=== PATIENT | female | born 1985 | race Caucasian/White ===

== ENCOUNTER 2019-05-29 18:34 | Inpatient (IN) ==
[2019-05-29] MEDS ORDERED: NS 1,000 ML IV ONE ×2 (18:41→19:39)
[2019-05-29] MEDS ORDERED: ZOFRAN IV ONE (18:41)
[2019-05-29] MEDS ORDERED: MORPHINE IV ONE (18:42)
[2019-05-29 19:19] LABS: BASO# 0.02 X1000 (0.0-0.2); BASO% 0.2 % (0.0-0.8); EOS# 0.08 X1000 (0.0-0.7); HEMATOCRIT 41.2 % (37.0-47.0); HEMOGLOBIN 14.5 g/dL (12.0-16.0); LYMPH# 2.01 X1000 (1.2-3.4); LYMPH% 24.8 % (20.5-51.1); MCHC 35.2 g/dL (33-37); MCV 88.2 FL (81-99); MONO# 0.97 X1000 (0.11-0.59); MONO% 11.9 % (1.7-9.3); MPV 9.3 FL (7.4-10.4); NEUT# 5.04 X1000 (1.4-6.5); NEUT% 62.1 % (42.2-75.2); PLT 257 X1000 (130-400); RBC 4.67 XMIL (4.2-5.4); RDW 12.7 % (11.5-14.5); WBC 8.12 X1000 (4.8-10.8)
[2019-05-29] MEDS ORDERED: NS 1,000 ML ONE (19:33)
[2019-05-29 19:37] LABS: AGAP 13; ALB/GLOB RATIO 1.5; ALBUMIN 4.1 g/dL (3.5-5.0); ALKALINE PHOSPHATASE 55 U/L (32-104); AMYLASE 27 U/L (20-200); BUN 20 mg/dL (8-22); CALCIUM 9.2 mg/dL (8.8-10.2); CHLORIDE 98 mmol/L (98-107); COSMO 279; ESTIMATED GFR > 60; GLUCOSE 105 mg/dL (70-104); GOT 19 U/L (10-30); GPT 19 U/L (10-36); LIPASE 16 U/L (13-60); POTASSIUM 3.5 mmol/L (3.5-5.1); SODIUM 138 mmol/L (136-145); TCO2 27 mmol/L (25-35); TOTAL BILIRUBIN 0.93 mg/dL (0.20-1.00); TOTAL PROTEIN 6.8 g/dL (6.3-8.3)
[2019-05-29] MEDS ORDERED: SODIUM CHLORIDE 0.9% INJ ONE (20:16)
[2019-05-29] MEDS ORDERED: PHENERGAN IV ONE (20:16)
[2019-05-29] MEDS ORDERED: LEVOPHED 8 MG in D5 1/2 NS 250 ML IV SCH (20:30)
[2019-05-29 20:41] LABS: URINE SOURCE CLEAN CATCH
[2019-05-29 20:44] LABS: BILIRUBIN URINE NEGATIVE (NEGATIVE); BLOOD URINE NEGATIVE (NEGATIVE); COLOR YELLOW; GLUCOSE URINE NEGATIVE (NEGATIVE); KETONE URINE 40 mg/dL (NEGATIVE); LEUKOCYTES URINE NEGATIVE (NEGATIVE); NITRITE URINE NEGATIVE (NEGATIVE); PROTEIN URINE TRACE mg/dL (NEGATIVE); SP GRAVITY URINE 1.018; TURBIDITY URINE HAZY (CLEAR); UROBILINOGEN URINE NORMAL (NORMAL)
[2019-05-29 20:49] LABS: UR EPITHELIAL CELLS <10 /HPF (<10); URINE BACTERIA 1+ /HPF; URINE RBC <10 /HPF (<10); URINE WBC <10 /HPF (<10)
--- NOTE | 2019-05-29 20:55 | Diag Imaging Result Doc PS360 ---
CT ABD/PELVIS W/IV CONT ONLY - 05/29/2019 INDICATION: abd pain COMPARISON: None FINDINGS: The lung bases are clear and the heart size is normal. There is a stone in the right kidney measuring 7 x 5 mm. No hydronephrosis or hydroureter. Otherwise all abdominal organs are normal. No bowel obstruction or inflammation. Uterus is absent. Urinary bladder and rectum are normal. Bones are intact. IMPRESSION: Nonobstructing right renal stone. This exam was performed using automated exposure control, adjustment of mA or kV according to patient size, and/or use of iterative reconstruction technique Electronically signed by Jai Ramirez 05/29/2019 8:53 PM
[2019-05-29 20:58] LABS: URINE YEAST NONE SEEN
[2019-05-29] MEDS ORDERED: LR 1,000 ML IV ONE (22:35)
--- NOTE | 2019-05-30 | HISTORY AND PHYSICAL ---
PRIMARY CARE PHYSICIAN: Dr. Bay, [place], [place]. REASON FOR ADMISSION: A 2-week history of persistent nausea, vomiting, and diarrhea. HISTORY OF PRESENT ILLNESS: Ms. Ruth Vasquez is a 34-year-old, woman, with past medical history of migraines, hypertension, anxiety. She comes in today complaining of a 2-week history of persistent nausea, vomiting, and diarrhea. Neither her vomitus or diarrhea is bloody or has altered blood. No fever. No chills. No contacts. No travel. No sick pets. No change in her medications. She says she came in today because she is profoundly weak to the point that when she tries to sit up or stand up, she feels severely lightheaded to the point that she may want to pass out. She says that the diarrhea episodes do not occur at night and she has since developed about a 1-week history of periumbilical, constant, nagging pain, which has started radiating to the right lower quadrant. The pain is worse when she eats. No specific relieving factors. She also reports that for the last 2 days, she has not voided. She has no extremity swelling or abdominal swelling. She says she has not had anything to eat for the last 3 to 4 days. Cannot keep her food down. REVIEW OF SYSTEMS: A 12-system review, positive findings per HPI. No history of recent antibiotic use. ALLERGIES: Sulfa and Topamax. HOME MEDICATIONS: Patient is on Elavil 50 mg daily, Phenergan 25 mg q.6 p.r.n., Trintellix 20 mg daily, Protonix 40 mg daily, Percocet 10 q.6 p.r.n., Hyzaar 50/12.5 mg daily, Klonopin 0.5 mg p.r.n., Inderal 20 mg daily, Cymbalta 30 mg daily, Cardizem 240 mg daily, Lunesta 2 mg at bedtime. SURGICAL HISTORY: She has had a hysterectomy and a section. FAMILY HISTORY: Significant for thyroid disorder. SOCIAL HISTORY: Smokes half a pack a day. Lives with her spouse. No alcohol or illicit drug use. LABORATORY AND DIAGNOSTIC DATA: White count 8000, hemoglobin and hematocrit 14 and 41, platelets 257,000, normal differential. BUN is 20, creatinine 1.0, glucose 105. Lipase is normal. Urine just shows positive ketones, 1+ bacteria. CT of abdomen and pelvis was essentially normal. PHYSICAL EXAMINATION: VITAL SIGNS: Blood pressure 77/56, on 2 L of normal saline, it has gone up to 91/42. Heart rate 78, respirations 50, temperature is 98.8 degrees, 100% on room air. GENERAL: Young, woman, who is in mild distress from nausea and pain. She is alert and oriented to person, place, and time. Normal mood and affect. HEENT: Head is normocephalic, atraumatic. Eyes, PERRLA, EOMI. Sclerae anicteric, not pale. ENT and oropharyngeal exam is only notable for moderate xerostomia. No central cyanosis. NECK: Supple. No JVD or carotid bruit. No thyromegaly. CHEST: Clear to auscultation. Good air entry in all lung borrego. CARDIOVASCULAR: First and second heart sounds heard. No gallops, murmurs, rubs. Rhythm is regular. ABDOMEN: Full, soft, with tenderness confined to the umbilical area. Bowel sounds are hyperactive surprisingly. Rectal exam is deferred. The patient has questionable McBurney point tenderness. EXTREMITIES: Patient has no edema, clubbing, or peripheral cyanosis. Significant decreased pulse volumes in all extremities, but they are symmetrical and regular. NEUROLOGICAL: Grossly normal. No focal deficits. SKIN: Intact. No breakdown, lesion, erythema. There is an area near her left cubital area medially that has thickened, cord-like structures that are mildly tender. MUSCULOSKELETAL: Grossly normal. ASSESSMENT: 1. Gastroenteritis. Etiology yet to be determined. 2. Severe dehydration from gastroenteritis. 3. Left upper extremity thrombophlebitis. 4. Migraines. 5. History of hypertension. 6. Hypotension secondary to #1. PLAN: The patient will be aggressively resuscitated with intravenous crystalloids. If blood pressure does not improve and her MAP is significantly low, we may need to supplement her blood pressure control with pressors. I personally do not think that will be necessary as long as she is appropriately hydrated. Will treat patient symptomatically. Ordered a right upper quadrant sonogram to rule out the possibility of cholecystitis, based on the fact that her symptoms are aggravated by meals. Failing any valuable information, an EGD and colonoscopy may be entertained, and will consult GI to see. We will withhold antihypertensives during this phase unless her systolic blood pressure is greater than 150. All unnecessary medications will be withheld. cc: MD Hector Cruz
[2019-05-30] MEDS ORDERED: PERCOCET-10 PO PRN (00:52)
[2019-05-30] MEDS ORDERED: SODIUM CHLORIDE 0.9% INJ PRN (00:52)
[2019-05-30] MEDS ORDERED: TYLENOL PO PRN (00:52)
[2019-05-30] MEDS ORDERED: ZOFRAN IV PRN (00:52)
--- NOTE | 2019-05-30 01:31 | EKG Report ---
Test Performed on : 05/29/2019 6:43:23 PM Test Reason : CP Blood Pressure : / mmHG Vent. Rate : 091 BPM Atrial Rate : 091 BPM P-R Int : 158 ms QRS Dur : 108 ms QT Int : 394 ms P-R-T Axes : 054 057 041 degrees QTc Int : 484 ms Sinus rhythm. with frequent premature ventricular complexes. Prolonged QT Abnormal ECG When compared with ECG of 24-AUG-2013 17:31, premature ventricular complexes. are now present QT has lengthened Unconfirmed Result
[2019-05-30] MEDS: POTASSIUM CHLORIDE 10 MEQ in LR 1,000 ML IV SCH ×3 (01:45→17:22)
[2019-05-30] MEDS: LOVENOX SUBQ SCH (01:45)
[2019-05-30] MEDS: PROTONIX IV SCH ×2 (01:45→15:15)
[2019-05-30 06:41] LABS: EOS% 2.6 % (0.0-10.0); HEMOGLOBIN 13.1 g/dL (12.0-16.0); LYMPH% 36.6 % (20.5-51.1); MCH 31.1 PG (27-31); MCHC 34.5 g/dL (33-37); MCV 90.3 FL (81-99); MONO% 9.9 % (1.7-9.3); MPV 9.1 FL (7.4-10.4); NEUT% 50.5 % (42.2-75.2); PLT 184 X1000 (130-400); RBC 4.21 XMIL (4.2-5.4); RDW 12.8 % (11.5-14.5); WBC 4.54 X1000 (4.8-10.8)
[2019-05-30 06:42] LABS: BASO# 0.02 X1000 (0.0-0.2); BASO% 0.4 % (0.0-0.8); EOS# 0.12 X1000 (0.0-0.7); LYMPH# 1.66 X1000 (1.2-3.4); MONO# 0.45 X1000 (0.11-0.59); NEUT# 2.29 X1000 (1.4-6.5)
[2019-05-30] MEDS: PHENERGAN IV PRN ×2 (06:46→18:42)
[2019-05-30] MEDS: MORPHINE IV PRN ×2 (06:59→18:35)
[2019-05-30 07:47] LABS: AGAP 6; BUN 14 mg/dL (8-22); CALCIUM 8.1 mg/dL (8.8-10.2); CHLORIDE 104 mmol/L (98-107); COSMO 277; CREATININE 0.6 mg/dL (0.5-0.9); ESTIMATED GFR > 60; GLUCOSE 75 mg/dL (70-104); MAGNESIUM 1.8 mg/dL (1.5-2.7); POTASSIUM 3.7 mmol/L (3.5-5.1); SODIUM 139 mmol/L (136-145); TCO2 29 mmol/L (25-35)
--- NOTE | 2019-05-30 07:53 | Diag Imaging Result Doc PS360 ---
EXAM: US ABDOMEN-COMPLETE 05/30/2019 HISTORY: RUQ pain diarreha TECHNIQUE: Abdominal ultrasound COMMENT: The visualized portions of the aorta and inferior vena cava are within normal limits. The head of the pancreas is normal in appearance most of the body and tail are obscured. The liver is unremarkable. There is antegrade flow in the portal vein. There is no evidence of biliary dilatation the common bile duct measuring less than 3 mm. The gallbladder is clear and nontender. The kidneys are without evidence of hydronephrosis or mass. The spleen is slightly enlarged measuring over 13 cm in two planes. IMPRESSION: Splenomegaly. Otherwise no evidence of acute disease. Electronically signed by Quintin Crowder 05/30/2019 7:51 AM
[2019-05-30] MEDS ORDERED: INDERAL PO SCH (09:00)
[2019-05-30] MEDS: KLONOPIN PO PRN ×2 (09:52→21:46)
[2019-05-30] MEDS ORDERED: G.I. COCKTAIL PO ONE (09:59)
[2019-05-30] MEDS ORDERED: DIPRIVAN 1% ONE (10:53)
[2019-05-30] MEDS ORDERED: XYLOCAINE-MPF 2% ONE (10:55)
--- NOTE | 2019-05-30 11:41 | ENDOSCOPY OPERATIVE NOTE ---
[facility] ENDOSCOPY OPERATIVE NOTE , PATIENT: Ruth Vasquez ADMISSION DATE: 05/30/2019 [facility]#: [id number] [facility] 1985 [id number] EGD PROCEDURE REPORT PROCEDURE DATE: 05/30/2019 SURGEON: Juaquin Johnson MD STATUS: inpatient EXTRUDER OPERATOR: PREOPERATIVE DIAGNOSIS: The patient is a 34 yr old female here for an EGD due to nausea, vomiting, p eriumbilical abdominal pain, and abdominal pain in the upper right quadrant. PROCEDURE PERFORMED: EGD w/ biopsy MEDICATIONS: Per Anesthesia TOPICAL ANESTHETIC: none CONSENT: The patient understands the risks and benefits of the procedure and understands that these r isks include, but are not limited to: sedation, allergic reaction, infection, perforation and/or bleeding. Alternative means of evaluation and treatment include, among others: physical exam, x-rays, and/or surgical intervention. The patient elects to proceed with this endoscopic procedure. HISORY AND PHYSICAL: 05/30/2019 function. Hand hygiene and appropriate measures for infection prevention was taken. After the risks, benefits and alternatives of the procedure were thoroughly explained, Informed consent was verified, confirmed and timeout was successfully executed by the treatment team. The patient was anesthetized with topical anesthesia and the TH13-w02 ([id number]) endoscope was introduced through the mouth and advanced to the second portion of the duoden um. Retroflexion was performed in the stomach and revealed no abnormalities. The gastroscope was then slowly withdraw n and removed. ESOPHAGUS: The mucosa of the esophagus appeared normal. The z-line was noted at 35cm from the incis ors. The z-line appeared normal. STOMACH: Moderate gastritis (inflammation) was found in the gastric antrum. H. pylori biopsies were taken. An erosion was found in the gastric antrum. DUODENUM: The duodenum was normal. SPECIMENS REMOVED: Yes ADVERSE EVENTS: There were no complications. POSTOPERATIVE DIAGNOSIS: 1. The mucosa of the esophagus appeared normal 2. The z-line was noted at 35cm from the incisors 3. Gastritis (inflammation) was found in the gastric antrum 4. Erosion was found in the gastric antrum 5. The duodenum was normal RECOMMENDATIONS: 1. Await biopsy results 2. Increase protonix to 40mg PO BID and continue for 8-12 weeks Stop Zantac Avoid NSAIDs/aspirin Clear liquid diet, advance as tolerated If no improvement, then consider HIDA scan REPEAT EXAM: Juaquin Johnson MD eSigned: Juaquin Johnson MD 05/30/2019 11:41 AM cc: PATIENT NAME: Ruth Vasquez MR#: [id number]
[2019-05-30] MEDS: SODIUM CHLORIDE 0.9% INJ SCH ×2 (15:15→18:42)
[2019-05-30] MEDS ORDERED: CYMBALTA PO SCH (15:15)
[2019-05-30] MEDS ORDERED: TRINTELLIX PO SCH (15:15)
[2019-05-30] MEDS: D5 1/2 NS 1,000 ML IV SCH (15:29)
--- NOTE | 2019-05-30 19:09 | GASTROENTEROLOGY CONSULTATION ---
DATE: 05/30/2019 REASON FOR CONSULTATION: Intractable nausea, vomiting, abdominal pain, and hypotension. HISTORY OF PRESENT ILLNESS: Ms. Ruth Vasquez is a 34-year-old woman with history of hypertension, anxiety, depression, migraines, obesity, GERD, chronic back pain on Percocet and ibuprofen 800 mg who presents with 2 weeks of periumbilical pain radiating to the right upper quadrant and associated nausea and vomiting. The patient reports nausea with p.o. intake, particularly solids. She is able to tolerate liquids without difficulty. Her pain she described as throbbing, burning, and severe. She denies any diarrhea. She says at baseline. She has intermittent loose stools, but has not been able to have a bowel movement since recently. No hematemesis, rectal bleeding, melena. She has lost about 20 pounds over this 2 week period. She denies any sick contacts, new medications or changes in her diet are. She presented yesterday after developing generalized weakness, lightheadedness and dizziness. REVIEW OF SYSTEMS: As per HPI, otherwise 12 point review of systems negative. PAST MEDICAL HISTORY: As per HPI. PAST SURGICAL HISTORY: Hysterectomy and . MEDICATIONS: Elavil, Phenergan, Trintellix, Protonix, Percocet, Hyzaar, Klonopin, Inderal, Cymbalta, Cardizem, Lunesta, ibuprofen. ALLERGIES: Sulfa and Topamax. FAMILY HISTORY: No family history of GI malignancies except for her grandmother who had liver cancer in the setting of cirrhosis, BURKS cirrhosis. SOCIAL HISTORY: She smokes half a pack per day. Lives with her spouse. Rare alcohol. No drug use. PHYSICAL EXAMINATION: Vital Signs: Temperature is 97.9 degrees, heart rate of 84, respiratory rate 18, blood pressure 116/84 from 77/56 yesterday, O2 saturation is 96% on room air. General: The patient is awake, alert, oriented, no acute distress. HEENT: Sclerae anicteric. Moist mucous membranes. Extraocular movement intact. Neck: Supple. No JVD or lymphadenopathy. Cardiac: Regular rate and rhythm. No murmurs, rubs, or gallops. Lungs: Clear to auscultation bilaterally. No wheezing. Abdomen: Obese, soft, minimal tenderness in periumbilical area. No rebound or guarding. Bowel sounds are present. Extremities: No clubbing, cyanosis, or edema. Neurologic: Nonfocal. LABORATORY DATA: White count of 4.5, hemoglobin of 13.1, platelets of 184,000. CMP is within normal limits. Lipase is 16. TSH is within normal limits. UA showed trace protein and ketones. IMAGING: CT of the abdomen and pelvis with IV contrast shows a nonobstructing right renal stone measuring 7 x 5 mm. Abdominal ultrasound shows mild splenomegaly measuring 13 cm. Otherwise, no evidence of acute disease. No gallstones or hepatobiliary process seen. ASSESSMENT AND PLAN: Ms. Ruth Barth is a 34-year-old woman who presented with hypotension in the setting of 2 weeks of intractable nausea, vomiting, and periumbilical abdominal pain radiating to the right upper quadrant. She does take ranitidine and Protonix at home for GERD. She is on high-dose NSAIDs for chronic back pain. I suspect that she probably has peptic ulcer disease as a cause of her symptoms. Other possibilities include biliary dyskinesia. We will make her NPO. She is on IV fluids, Protonix IV b.i.d., antiemetics, and Elavil. We will plan on diagnostic EGD today. Other findings include splenomegaly. She has a family history of BURKS cirrhosis. She is overweight with obesity. Suspect she may have early signs of fatty liver. However, her ultrasound was negative for this. Her LFTs were unremarkable. Thank you for this consult. We will follow with you. Please call with any questions or concerns.
[2019-05-30] MEDS: CYMBALTA PO SCH (21:47)
[2019-05-30] MEDS: ELAVIL PO SCH (21:47)
[2019-05-30] MEDS: TRINTELLIX PO SCH (21:52)
--- NOTE | 2019-05-31 00:18 | Extremity Venous Study ---
PROCEDURE NAME: Venous U/S Left Arm - 05/30/2019 REFERRING PHYSICIAN: Deyvi Martinez MD. INTERPRETING PHYSICIAN: Alex Albrecht MD. HOT PACKER: Ty. INDICATIONS: The patient has edema and pain in the left arm, a knot in the antecubital area a couple days after having blood drawn there. FINDINGS: The left upper extremity is imaged. The internal jugular, subclavian, axillary, brachial, and basilic veins are imaged. The knot is imaged, and it is the basilic vein near the antecubital fossa. All veins are compressible except the basilic vein in the antecubital fossa, which is clotted. INTERPRETATION: Superficial venous thrombosis involving the distal left basilic vein at the antecubital fossa. All other veins are compressible. There is no evidence of deep venous thrombosis in the left upper extremity. cc: MD Deyvi Torres MD
[2019-05-31] MEDS: LOVENOX SUBQ SCH (02:00)
[2019-05-31] MEDS: MORPHINE IV PRN (04:48)
[2019-05-31] MEDS: D5 1/2 NS 1,000 ML IV SCH ×2 (04:53→16:27)
[2019-05-31] MEDS: PROTONIX IV SCH ×2 (05:15→16:28)
[2019-05-31 07:55] LABS: AGAP 7; BUN 4 mg/dL (8-22); CALCIUM 8.2 mg/dL (8.8-10.2); CHLORIDE 107 mmol/L (98-107); COSMO 284; CREATININE 0.7 mg/dL (0.5-0.9); ESTIMATED GFR > 60; GLUCOSE 96 mg/dL (70-104); POTASSIUM 3.5 mmol/L (3.5-5.1); SODIUM 144 mmol/L (136-145); TCO2 30 mmol/L (25-35)
[2019-05-31] MEDS: PHENERGAN IV PRN (08:33)
[2019-05-31] MEDS ORDERED: ZOFRAN IV PRN (09:40)
[2019-05-31] MEDS ORDERED: MIRALAX PO SCH (10:00)
--- NOTE | 2019-05-31 10:45 | PROGRESS NOTE ---
DATE: 05/31/2019 SUBJECTIVE: This patient is still complaining of abdominal pain, epigastric area, radiated to the right upper quadrant. She had an endoscopy done yesterday that showed gastritis and erosion in the gastric antrum. We suggested to the patient to continue with PPIs twice a day, avoid NSAIDs, which she has been taking for a very long time, high amount, and aspirin, clear liquid diet and we need to advance this as tolerated. I discussed the case with Dr. Tyler today. We will add Carafate to her medications and also MiraLAX once a day to see how she does. Her blood pressure has been borderline low, mostly in the 90s now. I will stop the morphine and also the Phenergan, and I will decrease the dose of the Percocet that she has been on. PHYSICAL EXAMINATION: Vital signs: Temperature 98.5 degrees, pulse 91, respiratory rate 16, blood pressure 90/46, oxygen saturation 98% on room air. HEENT: Head normocephalic, no trauma. PERRLA. Neck: Supple. No JVD. No masses. Central trachea. Chest: Clear to auscultation. No wheezing. No rales. Abdomen: Soft. Tenderness to palpation at the level of the epigastric area and right upper quadrant. Positive bowel sounds. Extremities: Left upper extremity with some edema. No clubbing. No cyanosis. Neurological Examination: The patient is alert and oriented x3. No focal deficits. LABORATORY: Sodium 144, potassium 3.5, chloride 107, bicarbonate 30, BUN 4, creatinine 0.7, glucose 96, calcium 8.2. ASSESSMENT AND PLAN: 1. Abdominal pain status post endoscopy that showed erosive gastritis. We will continue proton pump inhibitors. We will add Carafate to her medications, continue with liquid diet. I will follow the recommendations of Gastroenterology Department. 2. Borderline low hypotension. She has been mostly in the 90s and 100s. I will continue with gentle IV fluids, and I will stop the morphine, and I will stop the Phenergan. I will continue with as needed Percocet, but I will decrease the dose by half, instead of 10 will be 5. We will monitor this patient closely. As per the patient she has been having some borderline high blood pressure before, but she has been losing a lot of weight also. This can contribute to her normalization of the blood pressure. 3. Superficial venous thrombosis at the distal left basilic vein at the antecubital fossa, no deep venous thrombosis, aware. The patient has been notified. 4. Migraines. Continue with same management for now. 5. Dehydration, resolved. 6. History of hypertension. Like I mentioned before, she has been losing weight and now the blood pressure has been borderline low. Continue with the same management for now. I will avoid morphine and Phenergan for now. cc: Barry Kinsey MD
[2019-05-31] MEDS ORDERED: CARAFATE PO SCH (11:00)
[2019-05-31] MEDS: CARAFATE LIQUID PO SCH ×3 (12:14→20:12)
[2019-05-31] MEDS: PERCOCET-5 PO SCH ×2 (12:24→20:13)
[2019-05-31] MEDS: SODIUM CHLORIDE 0.9% INJ SCH (16:28)
[2019-05-31] MEDS: ELAVIL PO SCH (20:12)
[2019-05-31] MEDS: CYMBALTA PO SCH (20:12)
[2019-05-31] MEDS: TRINTELLIX PO SCH (20:12)
[2019-05-31] MEDS: MIRALAX PO SCH (20:13)
[2019-05-31] MEDS: KLONOPIN PO PRN (21:23)
--- NOTE | 2019-05-31 22:23 | GASTROENTEROLOGY PROGRESS NOTE ---
DATE: 05/31/2019 SUBJECTIVE: She is resting in bed. Her mother was present at the bedside. Patient complains of discomfort in the abdomen. She does have intermittent constipation. She denies any fevers, rigors, or chills. She denies any nausea or vomiting. She does not recall her last bowel movement. OBJECTIVE: Vital signs: Temperature 97.4 degrees, pulse rate of 70, respiratory rate of 16, blood pressure 104/46, saturating 100% on room air. Body weight of 180 pounds. BMI of 30 kg/m2. General Appearance: Moderately built, lying in bed, in no acute distress. HEENT: No pallor. No icterus. Pupils equal, reactive to light and accommodation. Neck: Supple. Abdomen: Obese, soft, mildly protuberant. No rebound or guarding. Extremities: No cyanosis or clubbing. Neurologic: She is alert, awake, oriented x3. LABORATORY AND DIAGNOSTIC DATA: 1. Hemoglobin and hematocrit is 13.1 and 38, white count of 4.54, platelet count of 184,000. Sodium of 140, potassium 3.5, chloride of 107, bicarbonate of 30, anion gap 7, BUN of 4, creatinine of 0.7, glucose of 96, calcium 8.2. 2. Stool occult blood was negative. 3. The EGD report was reviewed, which showed evidence of moderate gastritis in the gastric antrum. Helicobacter pylori biopsies were taken. Erosions were found in the gastric antrum. The Z-line was noted at 35 cm. Duodenum was normal. The patient was suggested to be on PPIs b.i.d. for 8 to 12 weeks and to follow up for biopsy results with Dr. Johnson. IMPRESSION/PLAN: 1. Abdominal pain, likely secondary to gastritis. We will continue on proton pump inhibitors twice daily for 8 to 12 weeks. We will add Carafate suspension every 6 hours. The patient can slowly advance her diet. If she feels better, she can be released over the weekend to follow with Dr. Johnson in 1 week. 2. Constipation. She does not recall her last bowel movement. We will increase MiraLAX to 17 g p.o. b.i.d. She was instructed to drinks about 10 glasses of water every day and a high-fiber diet. The patient is a nurse. She is used to drinking less water and she has had intermittent constipation in the past. 3. Superficial venous thrombosis at distal left basilic vein at the antecubital fossa. Aware. No deep vein thrombosis found. 4. Migraines. Aware. Being managed by primary team. 5. Dehydration. She is on IV fluids. 6. Overweight. Her BMI is approaching 30. The patient will need to watch her diet, and be on a low-fat diet and low-calorie diet as an outpatient to help lose weight. 7. The patient will follow up in the clinic in 1 week after discharge. The above plan was discussed with the patient and family at bedside, and all questions answered. I also spoke with Dr. Christensen. We will sign off at this time. Please call us with any further questions. cc: MD Hector Medina
[2019-06-01] MEDS: LOVENOX SUBQ SCH (01:53)
[2019-06-01] MEDS ORDERED: NS 1,000 ML IV ONE (02:02)
[2019-06-01] MEDS: PERCOCET-5 PO SCH ×2 (02:11→11:28)
[2019-06-01] MEDS ORDERED: NS 1,000 ML ONE (02:21)
[2019-06-01] MEDS: PROTONIX IV SCH (06:02)
[2019-06-01] MEDS: SODIUM CHLORIDE 0.9% INJ SCH (06:02)
[2019-06-01] MEDS: CARAFATE LIQUID PO SCH ×2 (06:03→11:28)
[2019-06-01 08:37] VITALS: BP 119/68
[2019-06-01] MEDS: MIRALAX PO SCH (11:27)
[2019-06-01] MEDS: KLONOPIN PO PRN (11:38)
--- NOTE | 2019-06-01 14:55 | DISCHARGE SUMMARY ---
ADMISSION DATE: 05/29/2019 DISCHARGE DATE: 06/01/2019 DISCHARGE DIAGNOSES: 1. Abdominal pain status post endoscopy that showed erosive gastritis. 2. Erosive gastritis. 3. Borderline low blood pressure. 4. Superficial venous thrombosis at the distal left basilic vein at the antecubital fossa. No deep venous thrombosis. 5. History of migraines. 6. Dehydration, resolved. 7. History of hypertension, now borderline low blood pressure. 8. Anxiety. 9. Possible depression. PROCEDURES PERFORMED: 1. Abdomen and pelvis CT scan dated 05/29/2019. Impression: Nonobstructing right renal stone. 2. Abdomen ultrasound dated 05/30/2019. Impression: Splenomegaly. Otherwise no evidence of acute disease. 3. Extremity venous ultrasound dated 05/30/2019. Impression: Superficial venous thrombosis involving the distal left basilic vein at the antecubital fossa. All other veins are compressible. There is no evidence of DVT in the left upper extremity. 4. Endoscopic procedure dated 05/30/2019. Impression: Gastritis in the gastric antrum. Erosion was found in the gastric antrum. Normal duodenum. Esophagus: The mucous of the esophagus appeared normal. HOSPITAL COURSE: A 34-year-old female with past medical history of migraines, hypertension, anxiety, chronic pain with arthritis, presented and was admitted on 05/29/2019 complaining of 2-week history of persistent nausea, vomiting, and diarrhea, nonbloody. No fever, no chills. No travel, no sick pets. No changes in her medications. She presented as she was really weak to the point that when she tried to see sit up or stand up, she felt severely lightheaded, and she felt that she was about to pass out. She stated that the diarrhea had been around a week with periumbilical discomfort and started to radiate to the right lower quadrant. The pain was worse when she eats, and actually she has been losing weight. Abdomen and pelvis CT scan did not show any abnormality with her bowel, but it showed a non-obstructing renal stone. Ultrasound of the abdomen showed splenomegaly but no evidence of acute disease. So, this patient went for an endoscopy that showed erosive gastritis. It has been recommended by Gastroenterology Department to start this patient on Protonix, also Carafate, MiraLAX; drink plenty of fluids so she avoids dehydration; avoid spicy food as well. The symptoms are better, but she is still complaining of some abdominal pain. She will be discharged today. She will need to follow up with Dr. Johnson in 1 week, which is the gastroenterology doctor. Vital signs are stable as well as the laboratory. Negative occult blood in the stool x2. Negative C difficile colitis as well. She will continue with her home medications. I will add Protonix and Carafate. Since her blood pressure has been mostly in the 90s and 110s, I will stop all the blood pressure medications. PHYSICAL EXAMINATION: Vitals: Temperature 98.5 degrees, pulse 90 respiratory rate 18, blood pressure 119/68, oxygen saturation 100% on room air. HEENT: Head normocephalic, no trauma. PERRLA. Neck: Supple. No JVD. No masses. Central trachea. Chest: Clear to auscultation. No wheezing. No rales. Abdomen: Soft. Some tenderness to palpation at the level of the epigastric area and right upper quadrant. Positive bowel sounds. Extremities: Left upper extremity with some edema. No clubbing. No cyanosis. Neurological: The patient is alert. She is oriented x3. No focal deficits. LABORATORY: Sodium 144, potassium 3.5, chloride 107, bicarbonate 30, BUN 4, creatinine 0.7, glucose 96, calcium 8.2. DISCHARGE MEDICATIONS: 1. Amitriptyline 1 tablet p.o. at bedtime, 50 mg. 2. Clonazepam 1 mg p.o. twice a day as needed. 3. Duloxetine 30 mg p.o. capsule daily. 4. Lunesta 2 mg p.o. tablet at bedtime. 5. Percocet 5 one tablet p.o. q.8 hours as needed for pain. 6. Pantoprazole 1 tablet p.o. b.i.d. 7. MiraLAX 17 g p.o. daily. 8. Phenergan 25 mg p.o. q.6 hours as needed for nausea or vomiting. 9. Carafate 1 g p.o. 4 times a day. 10. Trintellix 20 mg p.o. daily. I had a large conversation with this patient at the bedside. As per the patient, she has some arthritis going, and this is why she has been taking a lot of NSAIDs before. Now she knows that she cannot use NSAIDs because of her gastritis and erosive lesion. She seems to understand. She will follow a diet. She will start with liquid diet, and she will advance as tolerated. Follow up with Dr. Johnson in 1 week. cc: Barry Kinsey MD
--- NOTE | 2019-06-05 17:01 | PROVIDER DOCUMENTATION ---
This chart was entered by Estefani Alvarez Scribe, acting as scribe for Blake Gomez CRNP. HPI-Abdominal Pain/GI Problem <Aracely Cabrera - Last Filed: 05/29/19 23:00> - General Source: patient - History of Present Illness-ABD Nature of Presenting Problems: pt is a 34 yr old female presenting with 2 week complaint of central abdominal pain radiating to RLQ, pt reports pain worsening since onset, sharp increase today. pt was seen by PCP yesterday and scheduled for multiple tests including hida scan and EGD-tests are scheduled for 06/10/19. pt also reports onset of nausea, vomiting and diarrhea today. pt reports severe weakness and hypotensive episode at home prior to coming in tonight. Abdominal Pain Onset Location: reports: periumbilical Pain Radiation: reports: RLQ Severity in ED: reports: severe Onset/Duration: reports: other (2 weeks) Timing: reports: changing over time, getting worse Activities at Onset: reports: light activity Exposure to sick contacts?: Yes Associated Symptoms: reports: diarrhea, fatigue, nausea, vomiting, weakness. denies: fever/chills Last BM: this evening Dark Stools Present?: reports: none noticed Rectal Bleeding: reports: none Rectal Pain: reports: none Bruising or Bleeding Gums?: No Similar Symptoms Previously?: Yes Recently seen or treated by another doctor?: Yes (seen by PCP 1 day ago for same, follow up 06/10/19) <Blake Gomez - Last Filed: 06/05/19 17:01> - General Chief Complaint: Abdominal Pain Stated Complaint: ABD PAIN Time Seen by Provider: 05/29/19 18:39 Allergies/Adverse Reactions: Patient Allergies Allergy/AdvReac Type Severity Reaction Status Date / Time Sulfa (Sulfonamide Allergy Severe HIVES Verified 05/17/19 11:04 Antibiotics) [Sulfa(Sulfonamide Antibiotics)] topiramate [From Topamax] Allergy Intermediate RASH Verified 05/17/19 11:04 Home Medications: Home Medication List Medication Instructions Recorded Confirmed Last Taken Type Amitriptyline HCl 1 tab PO QHS 05/17/19 05/29/19 05/16/19 History Duloxetine HCl 1 tab PO DAILY 05/17/19 05/30/19 05/16/19 History Eszopiclone [Lunesta] 3 mg PO QHS 05/17/19 05/30/19 05/16/19 History Promethazine [Phenergan] 25 mg PO Q6H PRN PRN #30 tab 05/17/19 05/30/19 Unknown Rx Vortioxetine Hydrobromide 1 tab PO DAILY 05/17/19 05/29/19 05/16/19 History [Trintellix] Clonazepam [Klonopin] 1 mg PO BID PRN PRN tab 06/01/19 Unknown Rx Oxycodone/APAP 5 mg/325 mg 1 ea PO Q8H #20 tab 06/01/19 Unknown Rx [Percocet-5] Pantoprazole [Protonix] 1 tab PO BID #180 tab 06/01/19 Unknown Rx Polyethylene Glycol 3350 [Miralax] 17 gm PO DAILY powder, packet 06/01/19 Unknown Rx Sucralfate [Carafate] 1 gm PO 4XDAY #160 tab 06/01/19 Unknown Rx Review of Systems - Adult - REVIEW OF SYSTEMS - ADULT Constitutional: reports: anabel. denies: chills, fever Eyes: reports: no symptoms reported Ears, Nose, Mouth & Throat: reports: no symptoms reported Cardiovascular: denies: chest pain, palpitations, syncope Respiratory: reports: no symptoms reported Gastrointestinal: reports: abdominal pain, diarrhea, nausea, vomiting Genitourinary: denies: dysuria, frequency, flank pain Musculoskeletal: reports: no symptoms reported Integumentary: reports: no symptoms reported Neurological: denies: dizziness/vertigo, headache/migraines Psychiatric: reports: no symptoms reported Endocrine: reports: no symptoms reported Hematologic/Lymphatic: reports: no symptoms reported Allergic/Immunologic: reports: no symptoms reported All Other Systems: Reviewed and Negative <Blake Gomez - Last Filed: 06/05/19 17:01> Past History - Adult - PAST MEDICAL HISTORY-ADULT Review of Records: reports: Old Records Reviewed, Nursing Assessment Review, Medications Reviewed, Social history reviewed & non-contributory. Major Childhood Illnesses: reports: denies history Cardiovascular: reports: denies history Respiratory: reports: denies history Gastrointestinal: reports: denies history Obstetrical/Gynecological: reports: denies history Genitourinary: reports: denies history Musculoskeletal: reports: denies history Neurological: reports: denies history Endocrine/Immune: reports: denies history Other Conditions: reports: denies history - IMMUNIZATION STATUS Childhood Immunizations: See Nurse Assessment Flu Vaccine: See Nurse Assessment - FAMILY HISTORY Family History: reviewed, not pertinent - SOCIAL HISTORY Smoking: cigarettes Provider spent 3-5 mins advising pt. on dangers of tobacco.: Discussed manners to quit use, and f/u contacts for add'l counseling. Substance Use: alcohol Alcohol Use Frequency: occasionally Living Situation: family <Blake Gomez - Last Filed: 06/05/19 17:01> Physical Exam-General - PHYSICAL EXAM-ADULT Initial Vital Signs Reviewed: Yes - CONSTITUTIONAL General Appearance: alert, moderate distress, other (tearful) - EYES Eyes: PERRL/EOMI - HEAD, EARS, NOSE, MOUTH & THROAT HENMT: normocephalic/atraumatic, moist mucous membranes - NECK Neck: non-tender, full range of motion, supple, normal inspection - RESPIRATORY Respiratory: chest non-tender, lungs clear, normal breath sounds, no respiratory distress, no accessory muscle use - CARDIOVASCULAR Cardiovascular: normal peripheral pulses, no edema, other (irreg, PVC, sinus arrhythmia) - GASTROINTESTINAL (ABDOMEN) Abdominal Exam: normal bowel sounds, soft, guarding, tenderness (central tenderness with immediate radiation to RLQ) - LYMPHATIC Lymphatic: no adenopathy - MUSCULOSKELETAL Back Exam: normal inspection Extremity: normal range of motion, non-tender, normal gait, normal inspection - SKIN Integumentary: normal color, normal turgor, warm/dry - PSYCHIATRIC Psych/Mental Status: tearful <Blake Gomez - Last Filed: 06/05/19 17:01> Progress - PLAN OF CARE/RESULTS Progress/Plan/Lab Results: Vital Signs - 8 hr 05/29/19 18:49 05/29/19 18:51 05/29/19 19:01 Temperature 98.8 F Pulse Rate 95 H 90 93 H Respiratory Rate 19 19 28 H Blood Pressure 102/54 102/54 87/53 O2 Sat by Pulse Oximetry 96 96 93 L 05/29/19 19:14 05/29/19 19:27 05/29/19 19:31 Temperature Pulse Rate 90 82 87 Respiratory Rate 20 18 31 H Blood Pressure 81/40 101/68 89/56 O2 Sat by Pulse Oximetry 97 96 96 05/29/19 19:56 05/29/19 20:02 Temperature Pulse Rate 81 78 Respiratory Rate 21 15 Blood Pressure 77/56 91/42 O2 Sat by Pulse Oximetry 97 100 Laboratory Results - last 24 hr 05/29/19 05/29/19 05/29/19 19:00 19:00 20:22 WBC 8.12 RBC 4.67 Hgb 14.5 Hct 41.2 MCV 88.2 MCH 31.0 MCHC 35.2 RDW Std Deviation 12.7 Plt Count 257 MPV 9.3 Immature Gran % (Auto) 0.0 Neut % (Auto) 62.1 Lymph % (Auto) 24.8 Glynn % (Auto) 11.9 H Eos % (Auto) 1.0 Baso % (Auto) 0.2 Immature Gran # (Auto) 0.00 Neut # (Auto) 5.04 Lymph # (Auto) 2.01 Glynn # (Auto) 0.97 H Eos # (Auto) 0.08 Baso # (Auto) 0.02 Sodium 138 Potassium 3.5 Chloride 98 Carbon Dioxide 27 Anion Gap 13 BUN 20 Creatinine 1.0 H Estimated GFR/1.73 m2 > 60 BUN/Creatinine Ratio 20 Glucose 105 H Calculated Osmolality 279 Calcium 9.2 Total Bilirubin 0.93 AST 19 ALT 19 Alkaline Phosphatase 55 Total Protein 6.8 Albumin 4.1 Globulin 2.7 Albumin/Globulin Ratio 1.5 Amylase 27 Lipase 16 Urine Source CLEAN CATCH Urine Color YELLOW Urine Turbidity HAZY Urine pH 6.0 Ur Specific [place] 1.018 Urine Protein TRACE A Ur Glucose (Stick) NEGATIVE Ur Ketones (Stick) 40 A Urine Blood NEGATIVE Urine Nitrite NEGATIVE Urine Bilirubin NEGATIVE Urobilinogen Dipstick NORMAL Urine Leukocytes NEGATIVE Urine WBC (Auto) <10 Urine RBC (Auto) <10 U Epithel Cells (Auto) <10 Urine Bacteria (Auto) 1+ Urine Crystals Not Reportable Small Round Cells Not Reportable Urine Casts Not Reportable Urine Yeast-like Cells NONE SEEN Orders Category Date Time Status Saline Loc NOW Care 05/29/19 18:[address] ABD/PELVIS W/IV CONT ONLY [CT] Stat Exams 05/29/19 18:40 Completed AMYLASE [CHEM] Stat Lab 05/29/19 19:00 Completed CBC WITH ELECTRONIC DIFF [HEME] Stat Lab 05/29/19 19:00 Completed COMPREHENSIVE METABOLIC PANEL [CHEM] Stat Lab 05/29/19 19:00 Completed LIPASE [CHEM] Stat Lab 05/29/19 19:00 Completed OCCULT BLOOD SCREENING [STOOL] Stat Lab 05/29/19 20:50 Received UA NIMS W/REFLEX CULT [URINALYSIS] Stat Lab 05/29/19 20:22 Completed URINE MANUAL MICROSCOPIC [URINALYSIS] Stat Lab 05/29/19 20:22 Completed 0.9% Sodium Chloride Inj [Ns] 1,000 ml Med 05/29/19 19:33 Discontinued .ROUTE As directed 0.9% Sodium Chloride Inj [Ns] 1,000 ml Med 05/29/19 18:41 Discontinued IV 999 mls/hr 0.9% Sodium Chloride Inj [Ns] 1,000 ml Med 05/29/19 19:39 Discontinued IV 999 mls/hr Dextrose 5%-0.45% NaCl Inj [D5 /2 Ns] 250 ml Med 05/29/19 20:30 Active Norepinephrine [Levophed] 8 mg IV As Directed mls/hr Morphine Med 05/29/19 18:42 Discontinued 4 mg IV NOW ONE Ondansetron [Zofran] Med 05/29/19 18:41 Discontinued 4 mg IV NOW ONE Promethazine [Phenergan] Med 05/29/19 20:16 Discontinued 12.5 mg IV NOW ONE Sodium Chloride 0.9% Med 05/29/19 20:16 Discontinued 10 ml INJ NOW ONE Result Diagrams: 05/29/19 19:00 05/29/19 19:00 - REASSESSMENT Reassessment #1 Time Reassessed: 22:00 Status: improving (no significant improvement in BP after 3 boluses, will d/w hospitalist for admission. Hold off on pressors for now.) - CT/MRI 1 CT Study: Abdomen, Pelvis Impression: Abnormal (CT ABD/PELVIS W/IV CONT ONLY - 05/29/2019 INDICATION: abd pain COMPARISON: None FINDINGS: The lung bases are clear and the heart size is normal. There is a stone in the right kidney measuring 7 x 5 mm. No hydronephrosis or hydroureter. Otherwise all abdominal organs are normal. No bowel obstruction or inflammation. Uterus is absent. Urinary bladder and rectum are normal. Bones are intact. IMPRESSION: Nonobstructing right renal stone. This exam was performed using automated exposure control, adjustment of mA or kV according to patient size, and/or use of iterative reconstruction technique Electronically signed by Jai Ramirez 05/29/2019 8:53 PM 05/29/192052 Interpreting Physician: Jai Ramirez MD Dictated Date/Time: 05/29/192049 cc: Blake Gomez; Hector Bay MD), See EMR Report - CONSULTS/PCP/HOSPITALIST Notification #1 *Consult/PCP/Hospitalist*: d/w Dr Martinez Time Discussed: 22:15 Consult Disposition: Admit <Aracely Cabrera - Last Filed: 05/29/19 23:00> - PLAN OF CARE/RESULTS Progress/Plan/Lab Results: Vital Signs - 8 hr 05/29/19 18:51 Temperature 98.8 F Pulse Rate 90 Respiratory Rate 19 Blood Pressure 102/54 O2 Sat by Pulse Oximetry 96 Orders Category Date Time Status Saline Loc NOW Care 05/29/19 18:[address] ABD/PELVIS W/IV CONT ONLY [CT] Stat Exams 05/29/19 18:40 Ordered AMYLASE [CHEM] Stat Lab 05/29/19 18:40 Uncollected CBC WITH ELECTRONIC DIFF [HEME] Stat Lab 05/29/19 18:40 Uncollected COMPREHENSIVE METABOLIC PANEL [CHEM] Stat Lab 05/29/19 18:40 Uncollected LIPASE [CHEM] Stat Lab 05/29/19 18:40 Uncollected UA NIMS W/REFLEX CULT [URINALYSIS] Stat Lab 05/29/19 18:40 Uncollected 0.9% Sodium Chloride Inj [Ns] 1,000 ml Med 05/29/19 18:41 Active IV 999 mls/hr Morphine Med 05/29/19 18:42 Discontinued 4 mg IV NOW ONE Ondansetron [Zofran] Med 05/29/19 18:41 Discontinued 4 mg IV NOW ONE Result Diagrams: 05/30/19 06:00 05/31/19 05:41 - EKG 1 Time of EKG reading by physician:: 18:43 EKG Read and Signed by:: Alex Rico EKG Interpretation (*Must complete 3 of following elements*): Abnormal (prolonged QT) Rate: 91 Rhythm: sinus rhythm with freq PVCs QRS: PVC's - CT/MRI 1 CT Study: Abdomen, Pelvis Impression: Abnormal - CHANGE OF SHIFT REPORT (ED Provider) 1 Report Given and Care Transferred to:: Dr Castro Time of Transfer: 20:40 Items Pending: Labs, CT/MRI Results <Blake Gomez - Last Filed: 06/05/19 17:01> Departure - Departure Date of Disposition Decision: 05/29/19 Time of Disposition Decision: 22:16 Certified Medical Emergency: Emergent - Critical Care Note This patient required my direct & personal management of CC.: No <Aracely Cabrera - Last Filed: 05/29/19 23:00> <Blake Gomez - Last Filed: 06/05/19 17:01> - Departure DIAGNOSIS: Hypotension, Abdominal pain, Nausea Disposition: ADMITTED INPATIENT 09 Condition: Stable Attestation - Physician/ SHERRY Attestation Patient care was provided by Advanced Practice Provider:: Yes Advanced Practice Provider:: Blake Gomez Advanced Practice Provider documentation review:: The Mid-level provider documentation, treatment plan and medical decision making was reviewed by the physician who agrees with all treatment and medical decision making by the MLP. The physician spent face to face time with patient:: Yes Advanced Practice Provider documentation review:: Supervising physician onsite and consulted in the evaluation and care of this patient. The physician did have a face to face encounter with the patient. <Blake Gomez - Last Filed: 06/05/19 17:01> This chart was documented by the indicated scribe, (Estefani Alvarez Scribe) and accurately reflects the services I performed and decisions made by Patricia lucas Reagan R., CRNP, as attested by the provider's signature.
== END 2019-06-01 12:28 | disposition home or self-care (01) | DRG 392 ==
LOC: ED 18:34 → EDIPHOLD 23:15 → SUATTDRO 23:15 → 4N 05-30 11:51
PROVIDERS: ATTEND Internal Medicine

== ENCOUNTER 2019-06-14 18:31 | Inpatient (IN) ==
[2019-06-14] MEDS ORDERED: ZOFRAN IV ONE (18:51)
[2019-06-14] MEDS ORDERED: MORPHINE IV ONE (18:52)
[2019-06-14] MEDS ORDERED: NS 1,000 ML IV ONE ×2 (18:52→20:54)
--- NOTE | 2019-06-14 18:55 | PROVIDER DOCUMENTATION ---
HPI-Abdominal Pain/GI Problem - General Chief Complaint: Abdominal Pain Stated Complaint: ABD PAIN, SYNCOPE Time Seen by Provider: 06/14/19 18:44 Allergies/Adverse Reactions: Patient Allergies Allergy/AdvReac Type Severity Reaction Status Date / Time Sulfa (Sulfonamide Allergy Severe HIVES Verified 05/17/19 11:04 Antibiotics) [Sulfa(Sulfonamide Antibiotics)] topiramate [From Topamax] Allergy Intermediate RASH Verified 05/17/19 11:04 NSAIDS (Non-Steroidal AdvReac NAUSEA/VOMI Verified 06/14/19 18:58 Anti-Inflamma TING Home Medications: Home Medication List Medication Instructions Recorded Confirmed Last Taken Type Amitriptyline HCl 1 tab PO QHS 05/17/19 06/14/19 05/16/19 History Duloxetine HCl 1 tab PO DAILY 05/17/19 06/14/19 05/16/19 History Eszopiclone [Lunesta] 3 mg PO QHS 05/17/19 06/14/19 05/16/19 History Promethazine [Phenergan] 25 mg PO Q6H PRN PRN #30 tab 05/17/19 06/14/19 Unknown Rx Vortioxetine Hydrobromide 1 tab PO DAILY 05/17/19 06/14/19 05/16/19 History [Trintellix] Clonazepam [Klonopin] 1 mg PO BID PRN PRN tab 06/01/19 06/14/19 Unknown Rx Oxycodone/APAP 5 mg/325 mg 1 ea PO Q8H #20 tab 06/01/19 06/14/19 Unknown Rx [Percocet-5] Pantoprazole [Protonix] 1 tab PO BID #180 tab 06/01/19 06/14/19 Unknown Rx Diltiazem HCl [Diltiazem 24Hr ER] 240 mg PO DAILY 06/14/19 06/14/19 Unknown History Polyethylene Glycol 3350 [Miralax] 17 gm PO BID 06/14/19 06/14/19 Unknown History - History of Present Illness-ABD Nature of Presenting Problems: 34 yr old F, with nausea, abdominal pain, worsening over the past few weeks, acutely worsening this morning, located in the RUQ/epigastric region, with no radiation; pt reports passing out three times from the pain, as well as multiple episodes of nausea and vomiting; inability to keep food down. Reportedly has upcoming appointment this week for gallbladder removal. Abdominal Pain Onset Location: reports: RUQ, epigastric Review of Systems - Adult - REVIEW OF SYSTEMS - ADULT Constitutional: reports: no symptoms reported Eyes: reports: no symptoms reported Ears, Nose, Mouth & Throat: reports: no symptoms reported Cardiovascular: reports: no symptoms reported Respiratory: reports: no symptoms reported Gastrointestinal: reports: abdominal pain, nausea, vomiting Genitourinary: reports: no symptoms reported Neurological: reports: no symptoms reported Past History - Adult - PAST MEDICAL HISTORY-ADULT Review of Records: reports: Nursing Assessment Review Major Childhood Illnesses: reports: denies history Respiratory: reports: denies history - PRIOR SURGERIES/PROCEDURES Surgical/Procedure History: reports: hysterectomy, - IMMUNIZATION STATUS Childhood Immunizations: See Nurse Assessment Flu Vaccine: See Nurse Assessment - FAMILY HISTORY Family History: reviewed, not pertinent Physical Exam-General - PHYSICAL EXAM-ADULT Initial Vital Signs Reviewed: Yes - CONSTITUTIONAL General Appearance: alert, no apparent distress - EYES Eyes: PERRL/EOMI - HEAD, EARS, NOSE, MOUTH & THROAT HENMT: normocephalic/atraumatic, moist mucous membranes - GASTROINTESTINAL (ABDOMEN) Abdominal Exam: soft, tenderness - SKIN Integumentary: normal turgor, warm/dry - NEUROLOGIC Neurologic: grossly normal - PSYCHIATRIC Psych/Mental Status: normal mood/affect, oriented x 3 Progress - PLAN OF CARE/RESULTS Progress/Plan/Lab Results: Vital Signs - 8 hr 06/14/19 18:36 Temperature 98.0 F Pulse Rate 79 Respiratory Rate 18 Blood Pressure 89/61 O2 Sat by Pulse Oximetry 100 Orders Category Date Time Status AMYLASE [CHEM] Stat Lab 06/14/19 18:52 Uncollected CBC WITH ELECTRONIC DIFF [HEME] Stat Lab 06/14/19 18:52 Uncollected COMPREHENSIVE METABOLIC PANEL [CHEM] Stat Lab 06/14/19 18:52 Uncollected LIPASE [CHEM] Stat Lab 06/14/19 18:52 Uncollected 0.9% Sodium Chloride Inj [Ns] 1,000 ml Med 06/14/19 18:52 Active IV 999 mls/hr Morphine Med 06/14/19 18:52 Discontinued 4 mg IV NOW ONE Ondansetron [Zofran] Med 06/14/19 18:51 Discontinued 8 mg IV NOW ONE Result Diagrams: 06/14/19 18:44 06/14/19 18:44 - REASSESSMENT Reassessment #1 Time Reassessed: 20:00 (Dr. Santa made aware of the case and came in to admit the patient to his service. He assumed care of the patient at that time. I believe plan is to admit, and prep for cholecystectomy in the AM.) - XRAY 1 XRAY Study: Abdomen Impression: See EMR Report - ULTRASOUND (By Radiology) 1 US Study: Abdomen Impression: See EMR Report Departure - Departure Date of Disposition Decision: 06/15/19 Time of Disposition Decision: 20:30 DIAGNOSIS: Abdominal pain, Nausea, Hypotension Disposition: ADMITTED INPATIENT Certified Medical Emergency: Emergent Condition: Fair - Critical Care Note This patient required my direct & personal management of CC.: No Attestation - Physician/ SHERRY Attestation Patient care was provided by Advanced Practice Provider:: No The physician spent face to face time with patient:: Yes Advanced Practice Provider documentation review:: Supervising physician onsite and consulted in the evaluation and care of this patient. The physician did have a face to face encounter with the patient.
[2019-06-14 19:08] LABS: BASO# 0.04 X1000 (0.0-0.2); BASO% 0.6 % (0.0-0.8); EOS# 0.16 X1000 (0.0-0.7); EOS% 2.4 % (0.0-10.0); HEMATOCRIT 41.6 % (37.0-47.0); HEMOGLOBIN 14.9 g/dL (12.0-16.0); LYMPH% 33.8 % (20.5-51.1); MCH 31.4 PG (27-31); MCHC 35.8 g/dL (33-37); MCV 87.6 FL (81-99); MONO% 10.3 % (1.7-9.3); MPV 9.3 FL (7.4-10.4); NEUT% 52.9 % (42.2-75.2); PLT 278 X1000 (130-400); RBC 4.75 XMIL (4.2-5.4); RDW 12.4 % (11.5-14.5)
[2019-06-14 19:35] LABS: AGAP 14; ALB/GLOB RATIO 1.4; ALBUMIN 4.4 g/dL (3.5-5.0); ALKALINE PHOSPHATASE 62 U/L (32-104); AMYLASE 42 U/L (20-200); BUN 7 mg/dL (8-22); CALCIUM 8.8 mg/dL (8.8-10.2); CHLORIDE 93 mmol/L (98-107); COSMO 275; CREATININE 0.8 mg/dL (0.5-0.9); ESTIMATED GFR > 60; GLUCOSE 126 mg/dL (70-104); GOT 32 U/L (10-30); GPT 35 U/L (10-36); LIPASE 23 U/L (13-60); POTASSIUM 2.9 mmol/L (3.5-5.1); SODIUM 138 mmol/L (136-145); TCO2 31 mmol/L (25-35); TOTAL BILIRUBIN 0.62 mg/dL (0.20-1.00); TOTAL PROTEIN 7.5 g/dL (6.3-8.3)
[2019-06-14] MEDS ORDERED: PHENERGAN PO ONE (20:18)
[2019-06-14] MEDS ORDERED: DILAUDID IV ONE (20:18)
--- NOTE | 2019-06-14 20:47 | Diag Imaging Result Doc PS360 ---
EXAM: US ABDOMEN-COMPLETE 06/14/2019 HISTORY: abdominal pain TECHNIQUE: Abdominal ultrasound COMMENT: The visualized portions of the pancreatic head are normal in appearance. The remainder is obscured. The visualized portions of the aorta and inferior vena cava are within normal limits. The liver is unremarkable in appearance. The gallbladder is clear and nontender. There is no evidence of biliary dilatation the common bile duct measuring less than 4 mm. There is apparent stone in the lower pole of the right collecting system measuring 5 mm in diameter. There is no evidence of hydronephrosis or or masses. The left kidney is without evidence of hydronephrosis or mass. The spleen is not enlarged. There are no abnormal fluid collections. There is antegrade flow in the portal vein. IMPRESSION: Right nephrolithiasis without evidence of obstructive uropathy. Otherwise no evidence of acute disease. Electronically signed by Quintin Crowder 06/14/2019 8:45 PM
[2019-06-14] MEDS ORDERED: POTASSIUM CHLORIDE 20 MEQ/SWI 20 MEQ/100 ML IVPB IV ONE (20:55)
--- NOTE | 2019-06-14 21:23 | Diag Imaging Result Doc PS360 ---
EXAM: FLAT/UPRIGHT ABD/1 VIEW CHEST 06/14/2019 HISTORY: abdominal pain TECHNIQUE: Flat and upright abdomen with AP chest COMMENT: The appearance of the chest has not changed significantly since 08/24/2013 considering differences in technique. There is gas and stool in the colon. There is no evidence of gastric or small bowel dilatation. There is no evidence of organomegaly or mass. IMPRESSION: Constipation. Electronically signed by Quintin Crowder 06/14/2019 9:21 PM
[2019-06-14 21:38] LABS: URINE SOURCE CLEAN CATCH
[2019-06-14 21:40] LABS: BILIRUBIN URINE NEGATIVE (NEGATIVE); BLOOD URINE NEGATIVE (NEGATIVE); COLOR YELLOW; GLUCOSE URINE NEGATIVE (NEGATIVE); KETONE URINE NEGATIVE (NEGATIVE); LEUKOCYTES URINE NEGATIVE (NEGATIVE); NITRITE URINE NEGATIVE (NEGATIVE); PH URINE 6.5; PROTEIN URINE NEGATIVE (NEGATIVE); SP GRAVITY URINE 1.007; TURBIDITY URINE CLEAR (CLEAR); UROBILINOGEN URINE NORMAL (NORMAL)
[2019-06-14 21:42] LABS: UR EPITHELIAL CELLS <10 /HPF (<10); URINE BACTERIA 1+ /HPF; URINE RBC <10 /HPF (<10); URINE WBC <10 /HPF (<10)
[2019-06-14] MEDS ORDERED: D5 1/2 NS + KCL 30 MEQ 1,000 ML IV SCH (22:00)
[2019-06-14] MEDS ORDERED: FLEET ENEMA PR ONE (22:07)
[2019-06-14] MEDS ORDERED: KLONOPIN PO PRN (22:08)
[2019-06-14] MEDS ORDERED: PERCOCET-5 PO SCH (22:15)
[2019-06-14] MEDS: KEFZOL 1 GM/D5W 1 GM/50 ML IVPB IV SCH (23:11)
[2019-06-14] MEDS: PROTONIX IV SCH (23:11)
[2019-06-14] MEDS: ELAVIL PO SCH (23:11)
[2019-06-14] MEDS: SODIUM CHLORIDE 0.9% INJ SCH (23:11)
[2019-06-14] MEDS: AMBIEN PO SCH (23:12)
[2019-06-15] MEDS: KEFZOL 1 GM/D5W 1 GM/50 ML IVPB IV SCH ×3 (05:55→20:56)
[2019-06-15 06:38] LABS: BASO# 0.01 X1000 (0.0-0.2); BASO% 0.2 % (0.0-0.8); EOS# 0.15 X1000 (0.0-0.7); EOS% 2.9 % (0.0-10.0); HEMATOCRIT 35.7 % (37.0-47.0); HEMOGLOBIN 12.2 g/dL (12.0-16.0); LYMPH# 1.86 X1000 (1.2-3.4); LYMPH% 35.8 % (20.5-51.1); MCH 30.7 PG (27-31); MCHC 34.2 g/dL (33-37); MCV 89.9 FL (81-99); MONO# 0.62 X1000 (0.11-0.59); MONO% 11.9 % (1.7-9.3); MPV 9.5 FL (7.4-10.4); NEUT# 2.56 X1000 (1.4-6.5); NEUT% 49.2 % (42.2-75.2); PLT 201 X1000 (130-400); RBC 3.97 XMIL (4.2-5.4); RDW 12.5 % (11.5-14.5)
[2019-06-15] MEDS ORDERED: SENSORCAINE 0.25%/EPI 1:200,000 ONE (06:55)
[2019-06-15] MEDS ORDERED: LR 1,000 ML ONE (06:55)
[2019-06-15] MEDS ORDERED: SODIUM CHLORIDE 0.9% ONE (06:55)
[2019-06-15 07:09] LABS: AGAP 9; ALB/GLOB RATIO 1.5; ALBUMIN 3.4 g/dL (3.5-5.0); ALKALINE PHOSPHATASE 46 U/L (32-104); BUN 4 mg/dL (8-22); CHLORIDE 99 mmol/L (98-107); COSMO 271; CREATININE 0.7 mg/dL (0.5-0.9); ESTIMATED GFR > 60; GLUCOSE 105 mg/dL (70-104); GOT 20 U/L (10-30); GPT 23 U/L (10-36); SODIUM 137 mmol/L (136-145); TCO2 29 mmol/L (25-35); TOTAL BILIRUBIN 0.34 mg/dL (0.20-1.00); TOTAL PROTEIN 5.6 g/dL (6.3-8.3)
[2019-06-15] MEDS ORDERED: QUELICIN (DOSE) ONE (07:31)
[2019-06-15] MEDS ORDERED: XYLOCAINE-MPF 2% ONE (07:31)
[2019-06-15] MEDS ORDERED: FENTANYL ONE (07:31)
[2019-06-15] MEDS ORDERED: VERSED ONE (07:31)
[2019-06-15] MEDS ORDERED: SODIUM CHLORIDE 0.9% 10 ML ONE (07:31)
[2019-06-15] MEDS ORDERED: NORCURON ONE (07:31)
[2019-06-15] MEDS ORDERED: DIPRIVAN 1% ONE (07:31)
[2019-06-15] MEDS ORDERED: REGLAN ONE (07:40)
[2019-06-15] MEDS ORDERED: PEPCID ONE (07:41)
[2019-06-15] MEDS ORDERED: NEOSTIGMINE ONE (08:05)
[2019-06-15] MEDS ORDERED: ROBINUL ONE (08:05)
[2019-06-15] MEDS ORDERED: EPHEDRINE ONE (08:15)
--- NOTE | 2019-06-15 08:39 | Diag Imaging Result Doc PS360 ---
EXAM: OPERATIVE CHOLANGIOGRAM HISTORY: CHOLECYSTECTOMY TECHNIQUE: Intraoperative cholangiogram, single view COMPARISON: None. FINDINGS: Contrast fills the common bile duct. It has emptied into the duodenum. No stone or stricture. IMPRESSION: Normal intraoperative cholangiogram. Electronically signed by Zackery Pedroza 06/15/2019 8:37 AM
[2019-06-15] MEDS: DILAUDID ONE ×4 (09:14→09:30)
[2019-06-15] MEDS: PHENERGAN ONE ×4 (09:25→09:38)
[2019-06-15] MEDS: DILAUDID IV PRN ×4 (10:21→22:54)
--- NOTE | 2019-06-15 11:11 | OPERATIVE NOTE ---
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 PROCEDURE PERFORMED: Laparoscopic cholecystectomy with cholangiogram. DESCRIPTION OF PROCEDURE: The patient was brought to the operating room. After satisfactory induction of IV and endotracheal anesthesia, athrombic TEDs were placed. Her abdomen was broadly prepped and draped in the appropriate manner for laparoscopy. Initially, the infraumbilical area was infiltrated with 0.25% Marcaine with epinephrine. Dissection was taken sharply down through skin and subcutaneous tissue to the fascia. Fascia was tacked with 0 Surgilon and incised. Under direct visualization, a Huma trocar was placed. The abdomen was insufflated to 3.5 L of carbon dioxide. Again, after infiltration with Marcaine and epinephrine, one 10 and two 5 mm trocars were placed across the right epigastrium. The patient was repositioned. The gallbladder was grasped and retracted superiorly. There were fairly dense omental adhesions that were peeled down. There was no evidence of duodenal involvement. The hilar structures were subsequently dissected. The cystic duct itself was quite small. The cystic duct cholangiogram revealed a very small collecting system, but patent with no evidence of obstruction. The catheter was removed. The duct was doubly clipped and divided, as was the cystic artery. The gallbladder was subsequently dissected from the liver bed with the use of the monopolar scissors. On completion, the intact gallbladder was removed through the infraumbilical incision. Reinspection of the liver bed revealed tiny bleeding points that were controlled by electrocautery. The subhepatic and subphrenic spaces were aspirated free of a small amount of bile and blood. All trocars were removed after abdominal deflation. The subumbilical incision underwent fascial closures of 0 Surgilon. All skin incisions were closed with subcuticular 4-0 Vicryl. Steri-Strips, Telfa, and OpSite were applied. She was awakened and extubated in the operating room, and transferred to recovery. Estimated blood loss was about 10 mL. cc: Dg Santa MD
[2019-06-15] MEDS: CYMBALTA PO SCH (11:27)
[2019-06-15] MEDS: CARDIZEM CD PO SCH (11:27)
[2019-06-15] MEDS: TRINTELLIX PO SCH (11:28)
[2019-06-15] MEDS: MIRALAX PO SCH ×2 (11:35→20:56)
[2019-06-15] MEDS: PHENERGAN IV PRN ×3 (14:06→23:22)
[2019-06-15] MEDS: SODIUM CHLORIDE 0.9% INJ PRN ×3 (14:07→22:59)
[2019-06-15] MEDS: THERA M PLUS PO SCH (14:26)
[2019-06-15] MEDS ORDERED: D5 1/2 NS + KCL 30 MEQ 1,000 ML IV SCH (15:48)
[2019-06-15] MEDS: SODIUM CHLORIDE 0.9% INJ SCH (20:55)
[2019-06-15] MEDS: PROTONIX IV SCH (20:55)
[2019-06-15] MEDS: PERIDEX MT SCH (20:55)
[2019-06-15] MEDS: ELAVIL PO SCH (20:55)
[2019-06-15] MEDS: PERCOCET-5 PO PRN (20:56)
[2019-06-15] MEDS: AMBIEN PO SCH (20:59)
[2019-06-16] MEDS: KEFZOL 1 GM/D5W 1 GM/50 ML IVPB IV SCH ×2 (06:34→06:42)
[2019-06-16] MEDS: DILAUDID IV PRN (06:43)
[2019-06-16] MEDS: PHENERGAN IV PRN (06:44)
[2019-06-16 06:51] LABS: HEMATOCRIT 33.8 % (37.0-47.0); HEMOGLOBIN 12.1 g/dL (12.0-16.0); MCH 32.8 PG (27-31); MCHC 35.8 g/dL (33-37); MCV 91.6 FL (81-99); MPV 9.4 FL (7.4-10.4); RBC 3.69 XMIL (4.2-5.4); RDW 12.4 % (11.5-14.5); WBC 8.76 X1000 (4.8-10.8)
[2019-06-16 07:20] VITALS: BP 103/60
[2019-06-16 07:20] LABS: AGAP 10; ALB/GLOB RATIO 1.4; ALBUMIN 3.3 g/dL (3.5-5.0); ALKALINE PHOSPHATASE 56 U/L (32-104); BUN 3 mg/dL (8-22); CALCIUM 8.7 mg/dL (8.8-10.2); CHLORIDE 104 mmol/L (98-107); COSMO 282; CREATININE 0.7 mg/dL (0.5-0.9); ESTIMATED GFR > 60; GLUCOSE 138 mg/dL (70-104); GOT 56 U/L (10-30); GPT 56 U/L (10-36); POTASSIUM 3.5 mmol/L (3.5-5.1); SODIUM 142 mmol/L (136-145); TCO2 28 mmol/L (25-35); TOTAL BILIRUBIN 0.38 mg/dL (0.20-1.00); TOTAL PROTEIN 5.6 g/dL (6.3-8.3)
[2019-06-16] MEDS: THERA M PLUS PO SCH (09:30)
[2019-06-16] MEDS: CARDIZEM CD PO SCH (09:30)
[2019-06-16] MEDS: MIRALAX PO SCH (09:30)
[2019-06-16] MEDS: TRINTELLIX PO SCH (09:30)
[2019-06-16] MEDS: PERCOCET-5 PO PRN (09:30)
[2019-06-16] MEDS: CYMBALTA PO SCH (09:30)
[2019-06-16] MEDS: PERIDEX MT SCH (09:30)
== END 2019-06-16 09:51 | disposition home or self-care (01) | DRG 419 ==
LOC: ED 18:31 → 4N 21:29
PROVIDERS: ADMIT Surgery; ATTEND Surgery